=== PATIENT | male | born 1950 | race Caucasian/White ===

== ENCOUNTER 2023-04-21 05:45 | Day surgery (SDC) | payer MEDICARE, OTHER ==
[2023-04-13 11:22] VITALS: BP 157/100
[~2023-04-21] VITALS: Ht 182.9 cm; Wt 84.1 kg
[~2023-04-21 05:45] MED LIST: ASPIRIN325 MG PO; CALCIUM 600 +1 EAC1 PO; DAILY MULTIPLE1 EACH PO; FISH OIL 1,0001 EAC2 NG; GABAPENTIN300 MG PO; SIMVASTATIN40 MG PO; ULTRAM50 MG PO; ZOLPIDEM TARTRA10 MG PO
[2023-04-21 06:04] VITALS: BP 113/64
--- NOTE | 2023-04-21 07:17 | NUR ---
DS ROUNDS. PT EXHIBITED LOW ANXIETY. PROVIDED HOSPITALITY; PROVIDED PRAYER. NO FOLLOW UP REQUIRED.
--- NOTE | 2023-04-21 08:03 | NUR ---
04/21/23 0803 Yudith,Nuria 0750 PT ARRIVED TO PACU ON RA AND ASLEEP. RESP EVEN AND UNLABORED AND CO2 MID 30S. 0758 PT WAKES TO TACTILE STIMULI AND IS REORIENTED TO PACU. PT EASILY FALLS BACK TO SLEEP.
[2023-04-21 08:30] VITALS: BP 125/74
--- NOTE | 2023-04-21 10:42 | OR ---
[facility] [address], [place] [address] Signed DATE OF OPERATION: 04/21/2023 SURGEON: Maldonado Patel MD PREOPERATIVE DIAGNOSES: 1. Brother of colon cancer at age 57. 2. Diverticulosis. POSTOPERATIVE DIAGNOSES: 1. Minimal diverticulosis. 2. Minimal internal hemorrhoids. PROCEDURE: Colonoscopy without biopsy. ESTIMATED BLOOD LOSS: None. INDICATIONS FOR THE PROCEDURE: Dalton is a 73-year-old gentleman asked to see me for a followup colonoscopy. He said his memory has gone downhill since I have seen him last. In fact, he could not remember that his brother had colon cancer at age 57 and actually of the colon cancer. He was also having trouble remembering his colonoscopy back at age 66 in 2017. That was his initial colonoscopy. We found that he had minimal diverticulosis. He has been on the five year plan. He says he has no lower GI complaints. I had given a pamphlet on colonoscopy. We had reviewed the nature of the test. There is risk including, but not limited to gas bloating, crampy abdominal pain, bleeding, perforation requiring surgery, and missed diagnosis. Also, because of his decreased memory as well as his chronic pain syndrome requiring opioids and Ambien, we asked that he undergo monitored anesthesia care, propofol infusion that worked out very nicely for Dalton today. He had expressed understanding and wished to proceed. DESCRIPTION OF PROCEDURE: Dalton was taken into our endoscopy suite and placed in the left lateral decubitus position. He was given monitored anesthesia care, propofol infusion per our nurse records custodian. A digital rectal exam was performed and this was unremarkable. He had good sphincter tone. There were no masses. Prostate is a little indurated. The adult colonoscope was introduced and advanced quite readily up into the cecum itself. We could see the appendiceal orifice and ileocecal valve. The scope then slowly withdrawn. He had a few areas of somewhat pasty liquid stool that we could not quite suction out Electronically Signed By: MALDONADO PATEL MD 04/21/23 1042 PATIENT NAME: DALTON GUTIERREZ OPERATIVE REPORT DATE OF : 48 REPORT #: [id number] PHYSICIAN: MALDONADO PATEL MD PCP: CHAR SAEZ REPORT IS CONFIDENTIAL AND NOT TO BE RELEASED WITHOUT AUTHORIZATION [facility] [address], [place] [address] Signed completely. I think in the future a little more prep would be helpful. We could see just a few diverticula in the sigmoid colon. Once in the rectum, the scope was retroflexed and he has standard internal hemorrhoid columns. After this, the gas was suctioned out, colonoscope removed. Dalton tolerated the procedure quite well. RECOMMENDATIONS: Dalton can return in 5 years so long his health holds up. He might consider a little more prep in the future. MD LEV Greer/GALLOL /[id number] cc: Char Saez, Nurse Practitioner Patient Chart Maldonado Patel MD Copies: MALDONADO PATEL MD ~ Electronically Signed By: MALDONADO PATEL MD 04/21/23 1042 PATIENT NAME: DALTON GUTIERREZ KWASI OPERATIVE REPORT DATE OF : 48 REPORT #: [id number] PHYSICIAN: MALDONADO PATEL MD PCP: CHAR SAEZP-C REPORT IS CONFIDENTIAL AND NOT TO BE RELEASED WITHOUT AUTHORIZATION
== END 2023-04-21 08:45 | disposition home or self-care (01) ==
LOC: OPS 05:45 → DS 05:45 → OPS 07:30 → DS 08:15 → OPS 08:45
PROVIDERS: ATTEND Colon & Rectal Surgery
PROC: 0DJD8ZZ Inspection of Lower Intestinal Tract, Via Natural or Artificial Opening Endoscopic (ICD-10-PCS; principal; 2023-04-21 07:30)
DX: Z12.11 Encounter for screening for malignant neoplasm of colon (principal); K57.30 Diverticulosis of large intestine without perforation or abscess without bleeding; K64.8 Other hemorrhoids; Z80.0 Family history of malignant neoplasm of digestive organs; I25.10 Atherosclerotic heart disease of native coronary artery without angina pectoris; G47.30 Sleep apnea, unspecified; F11.220 Opioid dependence with intoxication, uncomplicated; G89.4 Chronic pain syndrome; Z88.8 Allergy status to other drugs, medicaments and biological substances; Z79.82 Long term (current) use of aspirin; Z79.899 Other long term (current) drug therapy
CPT/HCPCS: 00811; J2001; J2704; J7121